=== PATIENT | female | born 1940 | race Caucasian/White ===

== ENCOUNTER → 2023-11-11 10:07 | Outpatient (CLI) | payer MEDICARE, SELFPAY ==
--- NOTE | 2023-11-11 | DI.RAD.S_ITS ---
Bone Density Report Name: Shahida YU Age: 83 Sex: Female Ethnicity: White Date of : 1940 Indication: postmenopausal; screening for osteoporosis; Referring Provider: SERA SANTILLAN Study: Bone densitometry was performed. Exam Date: November 11, 2023 Accession number: [id number] Bone Density: Region BMD T-score Z-score Classification AP Spine(L1-L4) 1.052 0.0 2.9 Normal Femoral Neck (Left) 0.611 -2.1 0.3 Osteopenia Total Hip (Left) 0.711 -1.9 0.4 Osteopenia Femoral Neck (Right) 0.574 -2.5 0.0 Osteoporosis Total Hip (Right) 0.708 -1.9 0.4 Osteopenia Total Hip Mean 0.709 -1.9 0.4 Osteopenia World Health Organization criteria for BMD impression classify patients as: Normal (T-score at or above -1.0), Osteopenia (T-score between -1.0 and -2.5), or Osteoporosis (T-score at or below -2.5). 10-year Fracture Risk: FRAX not reported because: Some T-score for Spine Total or Hip Total or Femoral Neck at or below -2.5 Impression: The patient has osteoporosis, based on the Right Femoral Neck T-score. Discussion: INCREASED RISK OF FRACTURE. BONE DENSITY IS UNDESIRABLY LOW AT ONE OR MORE SKELETAL SITES, CONSISTENT WITH POSTMENOPAUSAL OSTEOPOROSIS. This patient's lowest T-score meets the World Health Organization's (WHO) criteria for osteoporosis at one or more sites (T-score -2.5 or below). In untreated patients, the risk of osteoporotic fracture increases approximately two-fold for each 1.0 SD decrease in T-score. Low bone density is not the only risk factor for fracture; also consider factors such as patient's age, frailty or poor health, risk of falling, risk of injury, previous osteoporotic fracture, family history of osteoporosis, cigarette smoking, low body weight, etc. Not everyone with low bone mineral density has osteoporosis; osteomalacia and other metabolic bone disorders should also be considered. Patients who have osteoporosis should be evaluated for specific diseases and conditions (secondary causes) that may cause or contribute to bone loss. The [place] [employer] (AACE) and National Osteoporosis Foundation (NOF) recommend pharmacologic intervention for all postmenopausal women whose T-score is in this range. The patient should follow a healthful lifestyle (good nutrition with adequate calcium and vitamin D, and appropriate weight-bearing exercise). Follow-Up: Consider a repeat BMD and Vertebral Fracture Assessment (VFA) exam in 2 years or sooner if medically necessary, to reassess this patient's status. Reported by: NICHOL FUNG M.D. on 11/11/2023 10:47:00 AM.
== END ==
LOC: RAD 10:10
PROVIDERS: Family Provider Family Medicine; PCP Family Medicine; Referring Provider Family Medicine; Visit Provider Family Medicine
DX: M81.6 Localized osteoporosis [Lequesne] (principal); Z13.820 Encounter for screening for osteoporosis
CPT/HCPCS: 77080

== ENCOUNTER 2025-07-21 12:01 | Emergency (ER) | payer MEDICARE, SELFPAY ==
[2025-07-21] VITALS (7 sets, daily range): BP systolic 172–200; BP diastolic 79–96; PULSE 60–71; RESP 15–21; TEMP 36.4; O2SAT 93–100; BMI 20.5
--- NOTE | 2025-07-21 12:26 | DI.RAD.S_ITS ---
PROCEDURE: XR CHEST 1V INDICATIONS: chest pain TECHNIQUE: One view of the chest was acquired. COMPARISON: None. FINDINGS: Surgical changes and devices: None. Lungs and pleura: Right lung base increased opacities. No pleural effusions or pneumothorax. Mediastinum: Mediastinal contours appear normal. Heart size is normal. Bones and chest wall: No suspicious bony lesions. Overlying soft tissues appear unremarkable. IMPRESSION: Right lung base increased opacities, concerning for developing pneumonia. Dictated by: Sage Ponce M.D. on 07/21/2025 at 12:01 Approved by: Sage Ponce M.D. on 07/21/2025 at 12:01
[2025-07-21 12:43] LABS: Add Manual Diff / Slide Review NO; Hematocrit 44.3 % (36-46); Hemoglobin 14.6 g/dL (12.0-16.0); Lymphocytes Absolute Auto 1600 /uL (1100-4500); Mean Corpuscular HGB Conc 32.9 % (30-36); Mean Corpuscular Hemoglobin 30.4 PG (26-34); Mean Corpuscular Volume 92.6 fL (80-100); Platelet Count 259 X10^3/uL (150-400)
--- NOTE | 2025-07-21 12:49 | ED_ITS ---
HPI - Nausea/Vomiting/Diarrhea General Chief complaint: Nausea/Vomiting/Diarrhea Stated complaint: EMT visited & Ref, nausea, dairrhea, HBP Time Seen by Provider: 07/21/25 12:26 Source: patient Mode of arrival: Ambulatory History of Present Illness HPI Narrative: Patient is a an 84-year-old female history of ongoing hypertension presenting today with nausea lightheadedness and elevated blood pressure. Apparently this happens to her some times sometimes her blood pressure is too high sometimes it is too low. She typically goes to [facility] in [place]. Today she felt nauseous she threw up when she was a little lightheaded. Currently she is hypertensive blood pressure 197/96. She denies any chest pain shortness of breath no numbness tingling or weakness. No ongoing nausea or vomiting overall feeling better. She reports that when she was feeling so poorly earlier she called 911 and they recommended that she come here for evaluation. Related Data Allergies Allergy/AdvReac Type Severity Reaction Status Date / Time hazelnut (HAZELNUT) Allergy Unknown Verified 07/21/25 12:17 ENVIRONMENTAL ALLERGIES Allergy Mild SNEEZING, Uncoded 07/21/25 12:17 NASAL RHINITUS SPRING & SUMMER Patient History Family History (Updated 01/08/17 @ 00:00 by Conversion Provider) Father Heart disease Mother Diabetes mellitus Heart disease Social History Smoking Status: Never smoker Smoking Status: Never smoker Alcohol type: wine Exam Initial Vital Signs Initial Vital Signs: Vital Signs Temperature 97.6 F 07/21/25 12:17 Pulse Rate 67 07/21/25 12:17 Respiratory Rate 18 07/21/25 12:17 Blood Pressure 197/96 H 07/21/25 12:17 Pulse Oximetry 100 07/21/25 12:17 Oxygen Delivery Method Room Air 07/21/25 12:17 GENERAL: Alert pleasant well-appearing 84-year-old female and in no acute distress. HEENT: Head atraumatic,EOMI, pupils reactive, face symmetric, moist mucous membranes CARDIOVASCULAR: Regular rate and rhythm without murmurs, rubs or gallops. RESPIRATORY: Breath sounds equal bilaterally, no wheezes rales or rhonchi. ABDOMEN: Soft, nontender. Normoactive bowel sounds all 4 quadrants. No guarding or rebound. EXTREMITIES: Normal range of motion, no clubbing or edema. Neurovascularly intact NEUROLOGICAL: Alert and oriented x4.Normal gait and speech. Cranial nerves II through XII grossly intact. SKIN: Warm, dry, no laceration, no petechiae, no rashes or lesions. Course Orders Ordered: ED Orders 07/21/25 12:26 XR chest 1V Stat EKG-12 Lead Stat 07/21/25 12:33 Complete Blood Count AUTO DIFF Stat Comprehensive Metabolic Panel Stat Lactate (Lactic Acid) Stat Lipase Stat Magnesium Stat NT-proBNP (BNP-Adult 18+) Stat Troponin I Stat Vital Signs Vital signs: Vital Signs - 8 hr 07/21/25 12:17 07/21/25 12:34 07/21/25 12:34 Temperature 97.6 F Pulse Rate 67 62 Respiratory Rate 18 Blood Pressure 197/96 H 184/87 H Pulse Oximetry 100 97 Oxygen Delivery Method Room Air 07/21/25 13:00 07/21/25 13:00 07/21/25 13:30 Temperature Pulse Rate 60 67 Respiratory Rate 16 18 Blood Pressure 172/79 H Pulse Oximetry 98 97 Oxygen Delivery Method 07/21/25 13:30 07/21/25 13:58 07/21/25 13:58 Temperature Pulse Rate 71 Respiratory Rate 21 Blood Pressure 172/82 H 200/82 H Pulse Oximetry 96 Oxygen Delivery Method 07/21/25 14:00 07/21/25 14:01 07/21/25 14:01 Temperature Pulse Rate 71 64 Respiratory Rate 19 15 Blood Pressure 183/84 H Pulse Oximetry 93 98 Oxygen Delivery Method Room Air MDM - Nausea/Vomiting/Diarrhea Lab Data 07/21/25 12:33 07/21/25 12:33 Labs: Lab Results 07/21/25 Range/Units 12:33 WBC 12.5 H (4.5-11.0) X10^3/uL RBC 4.78 (4.0-5.2) X10^6/uL Hgb 14.6 (12.0-16.0) g/dL Hct 44.3 (36-46) % MCV 92.6 (80-100) fL MCH 30.4 (26-34) PG MCHC 32.9 (30-36) % RDW 14.5 (11.6-14.8) % Plt Count 259 (150-400) X10^3/uL Neut % (Auto) 79.3 H (50-75) % Lymph % (Auto) 12.7 L (25-40) % [place]cher % (Auto) 5.1 (3-14) % Eos % (Auto) 1.9 L (2-4) % Baso % (Auto) 1.0 (0-2) % Neut # (Auto) 9900 H (7161-8944) /uL Lymph # (Auto) 1600 (9493-6073) /uL Letcher # (Auto) 600 (0-900) /uL Eos # (Auto) 200 (0-450) /uL Baso # (Auto) 100 (0-100) /uL Sodium 139 (137-145) mmol/L Potassium 5.0 (3.4-5.1) mmol/L Chloride 104 (98-107) mmol/L Carbon Dioxide 25 (22-32) mmol/L BUN 15 (7-17) mg/dL Creatinine 0.87 (0.52-1.04) mg/dL Estimated GFR > 60 (>60) mL/min BUN/Creatinine Ratio 17.2 (6-22) Glucose 121 H (70-99) mg/dL Lactate 1.0 (0.7-2.1) mmol/L Calcium 9.2 (8.4-10.2) mg/dL Magnesium 2.2 (1.6-2.3) mg/dL Total Bilirubin 1.1 (0.2-1.3) mg/dL AST 38 H (14-36) IU/L ALT 20 (<35) IU/L Alkaline Phosphatase 94 (38-126) U/L Troponin I < 0.012 (0.01-0.034) ng/mL NT-Pro-B Natriuret Pep 761 H (<450) pg/mL Total Protein 9.2 H (6.3-8.2) g/dL Albumin 5.0 (3.5-5.0) g/dL Globulin 4.2 H (1.7-4.1) g/dL Albumin/Globulin Ratio 1.2 (1.0-2.8) Lipase 118 (23-300) U/L Urine Dip Bedside Urine Glucose Negative Bedside Urine Bilirubin - Negative Bedside Urine Ketone - Negative Urine Specific [place] 1.010 Bedside Urine Occult Blood - Negative Bedside Urine pH 7.0 Bedside Urine Protein - Negative Bedside Urine Urobilinogen - Negative Bedside Urine Nitrite - Negative Bedside Urine Leukocytes - Negative Esterase Imaging Data Chest x-ray: Radiologist's Impression: PROCEDURE: XR CHEST 1V INDICATIONS: chest pain TECHNIQUE: One view of the chest was acquired. COMPARISON: None. FINDINGS: Surgical changes and devices: None. Lungs and pleura: Right lung base increased opacities. No pleural effusions or pneumothorax. Mediastinum: Mediastinal contours appear normal. Heart size is normal. Bones and chest wall: No suspicious bony lesions. Overlying soft tissues appear unremarkable. IMPRESSION: Right lung base increased opacities, concerning for developing pneumonia. Dictated by: Sage Ponce M.D. on 07/21/2025 at 12:01 [facility] Narrative Medical decision making narrative: MDM CC: Nausea weakness hypertension Complicating co-morbidities: Hypertension Data collected from: Patient and family Medical records reviewed: None Differential considered: Hypertensive emergency, hypertensive urgency, gastroenteritis Exam documented above, pertinent findings include: Alert very well-appearing 84-year-old female abdomen soft nontender breath sounds are clear Lab Test results independently reviewed as above. Pertinent findings: CBC mild leukocytosis 12.5 no anemia CMP electrolytes within normal limits no ELMER glucose 121 Lactate 1.0 Bilirubin liver enzymes lipase within normal limits Troponin negative BNP 761 Independently reviewed EKG as above Imaging studies independently reviewed: Chest x-ray right lung base possible pneumonia Consultations: [ ] Treatments: None Re-evaluations: Patient continues to have no symptoms blood pressure is variable coming down nonemergent range Discussion: Patient 84-year-old female history of hypertension presenting today with elevated blood pressure. Family member states that she frequently goes to [facility] whenever she feels this way she sometimes stays overnight but it is unclear what she stays overnight for. She had 1 episode of vomiting blood pressure was elevated it was recommended she come to the ED. She overall is feeling much better. She has not had any fever chills or cough she has mild leukocytosis x-ray shows possible pneumonia but she does not not clinically correlate. Troponin is negative. Patient is feeling well at this time not having any kind of chest pain. No evidence of end-organ damage. At this time feels like she is ready and able to go home. There is no need for admission. Discharge Plan Departure Patient Disposition: Home Clinical Impression: Hypertension Instructions: Essential Hypertension Activity Restrictions/Additional Instructions: *You have been diagnosed with hypertension *What to do: At this time blood work is overall reassuring x-ray did show maybe pneumonia but you are not having symptoms at this time. So we will hold off treating you with antibiotics but continue to monitor *Continue to take medications as directed *Follow up with your primary care provider in 2-3 days or call [phone] *Return to ER if you should have increasing weakness chest pain shortness of breath confused or any new, worsening or concerning symptoms Referrals: Darcy Clifford MD [Primary Care Provider, Family Practice] Stand Alone Forms: Patient Portal/API
[2025-07-21 12:59] LABS: Lactate (Lactic Acid) 1.0 mmol/L (0.7-2.1)
[2025-07-21 13:00] LABS: Alanine Aminotransferase 20 IU/L (<35); Albumin 5.0 g/dL (3.5-5.0); Albumin Globulin Ratio 1.2 (1.0-2.8); Alkaline Phosphatase 94 U/L (38-126); Blood Urea Nitrogen 15 mg/dL (7-17); Calcium 9.2 mg/dL (8.4-10.2); Carbon Dioxide 25 mmol/L (22-32); Chloride 104 mmol/L (98-107); Estimated Glomerular Filt Rate > 60 mL/min (>60); Globulin 4.2 g/dL (1.7-4.1); Glucose 121 mg/dL (70-99); Lipase 118 U/L (23-300); Magnesium 2.2 mg/dL (1.6-2.3); Potassium 5.0 mmol/L (3.4-5.1); Sodium 139 mmol/L (137-145); Total Protein 9.2 g/dL (6.3-8.2)
[2025-07-21 13:05] LABS: HEMOLYSIS 84 (0-50)
[2025-07-21 13:12] LABS: NT-proBNP (BNP-Adult 18+) 761 pg/mL (<450); Troponin I < 0.012 ng/mL (0.01-0.034)
== END 2025-07-21 14:33 | disposition home or self-care (01) ==
PROVIDERS: Emergency Provider Emergency Medicine; Family Provider Family Medicine; PCP Family Medicine
DX: I10 Essential (primary) hypertension (principal); R19.7 Diarrhea, unspecified; R42 Dizziness and giddiness
CPT/HCPCS: 36415; 71045; 80053; 81003; 83605; 83690; 83735; 83880; 84484; 85025; 99283; 99284